=== PATIENT | male | born 1955 | race Caucasian/White ===

== ENCOUNTER 2016-09-27 12:10 | Emergency (ER) | payer BC ==
[2016-09-27 12:18] VITALS: BP 130/82
[2016-09-27] MEDS ORDERED: Sodium Chloride 0.9% 1,000 ML IV ONE (12:25)
--- NOTE | 2016-09-27 12:25 | EDM.PDOC ---
ED HPI RENAL/ - General Chief Complaint: Genitourinary Problem Stated Complaint: ? KIDNEY STONE Time Seen by Provider: 09/27/16 12:20 Source of Information: Reports: Patient History Limitations: Reports: No limitations - History of Present Illness INITIAL COMMENTS - FREE TEXT/NARRATIVE: Pete Fernandez is a 61 year old male with a medical history of diabetes and CAD presenting to the ED with right flank pain. The pain started this morning about an hour ago. The pain is severe and sharp and located in the right flank wrapping to the front of the abdomen towards the groin. He had a kidney stone in the past and reports it was "all acid." This feels the same way. He denies urinary difficulties including dysuria, hematuria, or frequency/urgency. He is from [place] and is in [employer]. Recent medical history includes a CT scan done in [place] on September 25 for follow-up on "infected hemorrhoids." He had an area in or around the rectum drained by his family doctor and is taking antibiotics for that now. He can't remember the antibiotics he is on. - Related Data Allergies/ADRs: Allergies Allergy/AdvReac Type Severity Reaction Status Date / Time No Known Allergies Allergy Verified 09/27/16 12:20 Home Meds: Home Meds Aspirin [Ecotrin] 1 tab PO DAILY 09/27/16 [History] Ergocalciferol (Vitamin D2) [Vitamin D] 1 tab PO DAILY 09/27/16 [History] Nitroglycerin [Nitrostat] 1 tab PO ASDIRECTED PRN 09/27/16 [History] Amery-3/DHA/Epa/Fish Oil [Fish Oil 1,000 mg Softgel] 2 cap PO DAILY 09/27/16 [ History] Omeprazole 1 tab PO DAILY 09/27/16 [History] Potassium Citrate [Potassium Citrate ER] 2 tab PO DAILY 09/27/16 [History] Quinapril [Accupril] 1 tab PO DAILY 09/27/16 [History] Rosuvastatin Calcium [Crestor] 20 mg PO DAILY 09/27/16 [History] metFORMIN [Glucophage XR] 1 tab PO DAILY 09/27/16 [History] Past Medical History Cardiovascular History: Reports: CAD, PR Endocrine/Metabolic History: Reports: Diabetes, type II Social & Family History - Tobacco Use Tobacco Use Within Last Twelve Months: Snuff/Dip (chews) - Alcohol Use Alcohol Use History: No - Recreational Drug Use Recreational Drug Use: No ED ROS GENERAL - Review of Systems Review Of Systems: ROS reveals no pertinent complaints other than HPI. Constitutional: Reports: no symptoms. Denies: fever, chills HEENT: Reports: No symptoms Respiratory: Denies: Shortness of Breath, Pleuritic Chest Pain, Cough Cardiovascular: Denies: Chest pain, Dyspnea on exertion, Lightheadedness Endocrine: Reports: no symptoms GI/Abdominal: Reports: Abdominal pain, Nausea. Denies: Bloody stool, Constipation, Diarrhea, Vomiting : Reports: flank pain. Denies: dysuria, frequency, hematuria, urgency, urinary retention Musculoskeletal: Reports: no symptoms Skin: Reports: no symptoms Neurological: Reports: No Symptoms Hematologic/Lymphatic: Reports: no symptoms Immunologic: Reports: no symptoms ED EXAM, RENAL/ - Physical Exam Exam: See Below Exam Limited By: No limitations General Appearance: alert, WD/WN, moderate distress (patient is sweating and moving around in pain) Eye Exam: bilateral eye: PERRL Ears: normal external exam, normal canal Nose: normal inspection Throat/Mouth: Normal inspection, Normal lips, Normal teeth, Normal oropharynx Head: atraumatic, normocephalic Neck: normal inspection, non-tender, full range of motion Respiratory/Chest: no respiratory distress, lungs clear, normal breath sounds, no accessory muscle use, chest non-tender Cardiovascular: regular rate, rhythm, no edema GI/Abdominal: normal bowel sounds, soft, other (tender in the right side of abdomen) Back Exam: CVA tenderness (R). No: CVA tenderness (L), paraspinal tenderness Extremities: normal inspection, normal range of motion Neurological: alert, oriented, CN II-XII intact Psychiatric: normal affect Skin Exam: Warm, Dry, No rash Lymphatic: no adenopathy Course - Vital Signs Last Recorded V/S: Last Vital Signs Temp 96.8 F 09/27/16 12:17 Pulse 60 09/27/16 12:17 Resp 24 H 09/27/16 12:17 BP 130/82 09/27/16 12:17 Pulse Ox 100 09/27/16 12:17 - Orders/Labs/Meds Orders: Active Orders 24 hr Category Date Time Status Morphine Med 09/27/16 15:03 Once 2 mg IVPUSH ONETIME ONE Tamsulosin [Flomax] Med 09/27/16 15:03 Once 0.4 mg PO ONETIME ONE Labs: Laboratory Tests 09/27/16 09/27/16 Range/Units 12:24 13:05 Sodium 138 (135-145) mmol/L Potassium 4.6 (3.6-5.0) mmol/L Chloride 109 (101-111) mmol/L Carbon Dioxide 24.0 (21.0-31.0) mmol/L Anion Gap 9.6 BUN 19 H (7-18) mg/dL Creatinine 1.3 (0.6-1.3) mg/dL Est Cr Clr Drug Dosing 58.92 mL/min Estimated GFR (MDRD) 56 Glucose 181 H (74-105) mg/dL Calcium 8.9 (8.4-10.2) mg/dl Urine Color Yellow (YELLOW) Urine Appearance Cloudy (CLEAR) Urine pH 5.0 (5.0-9.0) Ur Specific [place] 1.020 (1.005-1.030) Urine Protein Trace H (NEGATIVE) Urine Glucose (UA) 500 H (NEGATIVE) Urine Ketones Trace H (NEGATIVE) Urine Occult Blood Large H (NEGATIVE) Urine Nitrite Negative (NEGATIVE) Urine Bilirubin Negative (NEGATIVE) Urine Urobilinogen 0.2 (0.2-1.0) mg/dL Ur Leukocyte Esterase Negative (NEGATIVE) Urine RBC >100 H /HPF Urine WBC 0-5 (0-5/HPF) /HPF Ur Epithelial Cells Few /HPF Urine Bacteria Moderate H (0-FEW/HPF) /HPF Meds: Medications Discontinued Medications Generic Name Dose Route Start Last Admin Trade Name Arsenq PRN Reason Stop Dose Admin Sodium Chloride 1,000 mls @ 999 mls/hr 09/27/16 12:25 09/27/16 12:40 Normal Saline IV 09/27/16 13:25 999 mls/hr .BOLUS ONE Administration Ketorolac Tromethamine 30 mg 09/27/16 12:27 09/27/16 12:40 Toradol IVPUSH 09/27/16 12:28 30 mg ONETIME ONE Administration Morphine Sulfate 4 mg 09/27/16 12:26 09/27/16 12:40 Morphine IVPUSH 09/27/16 12:27 4 mg ONETIME ONE Administration - Re-Assessments/Exams Free Text/Narrative Re-Assessment/Exam: IV access established; patient given a 1 liter fluid bolus, 30 mg toradol, and 4 mg morphine IV. After pain improved he was taken to x-ray. UA collected. 09/27/16 12:42 Free Text/Narrative Re-Assessment/Exam: KUB did not show a stone so the patient was sent for a non-contrast CT of the abdomen/pelvis which revealed a 3 mm kidney stone at the right UVJ. He was given a dose of flomax and 2 mg of morphine IV after the CT. His is coming to pick him up so he will not be driving. 09/27/16 15:04 Departure - Departure Time of Disposition: 15:08 Disposition: Home, Self-Care 01 Clinical Impression: Ureterolithiasis Instructions: Kidney Stones, [id number] Referrals: PCP,Not In Area [Primary Care Provider] - Forms: ED Department Discharge Additional Instructions: Push fluids to help with passage of the kidney stone. [place] and indomethacin can be used for pain. Please do not drive or operate heavy machinery while under the influence of opioid medication ([place]). Please strain your urine to collect the stone for analysis. Follow-up with your primary care doctor when able. - Problem List Review Problem List Initiated/Reviewed/Updated: Yes - My Orders Last 24 Hours: My Active Orders 09/27/16 15:03 Morphine 2 mg IVPUSH ONETIME ONE Tamsulosin [Flomax] 0.4 mg PO ONETIME ONE - Assessment/Plan Last 24 Hours: My Active Orders 09/27/16 15:03 Morphine 2 mg IVPUSH ONETIME ONE Tamsulosin [Flomax] 0.4 mg PO ONETIME ONE Assessment:: Right ureterolithasis; 3 mm Plan: Patient with a 3 mm kidney stone near the right UVJ. This was not seen on plain film making uric acid stones seem likely. This stone has a high probability of passing on it's own. I would recommend flomax, increased hydration, norco, and indomethacin for facilitation of stone passage and pain control. He will be sent home with a kit to strain the urine for repeat stone analysis by his PCP in [place] so additional measures can be taken to prevent recurrence. Questions were answered and he was discharged to home in stable and improved condition.
[2016-09-27] MEDS ORDERED: Morphine 4 MG/ML Syringe IVPUSH ONE (12:26)
[2016-09-27] MEDS ORDERED: Ketorolac 30 MG/ML SDV IVPUSH ONE (12:27)
--- NOTE | 2016-09-27 13:06 | CR ---
Clinical history: 61-year-old male right flank pain. Interpretation: Multilevel disc disease and chronic hypertrophic arthritic changes lower dorsal spin e. Flat plate abdomen confirms asymmetric reactive arthritic sclerosis right hip and ipsilateral SI mary nt. No sign of pathologic calcifications abdominal soft tissue mass lesion, mechanical bowel obstruction or gross free intraperitoneal air. Lung bases clear. Normal cardiac silhouette No foreign bodies. CONCLUSION: Multilevel disc disease and arthritis spine/right hip No sign of urolithiasis. Nonspecific bowel pattern.
--- NOTE | 2016-09-27 14:34 | CT ---
Clinical history: 61-year-old hypertensive, diabetic male with history of "kidney stones" presents n ow with right flank pain. TECHNIQUE: Volume acquisition of data emergency unenhanced CT scan of the abdomen and pelvis (kidney s/ureters/bladder) obtained with the patient lying supine on the Siemens multi slice CT scanner [place], [place]. All data archived in the PACS system for storage, refor matting and study. Interpretation: Abnormal. 1. *Tiny 3 mm diameter distal right ureterolith with subtle asymmetric signs of proximal ureterectas is and pyelocaliectasis on the right. (Some pyelosinus backflow around the contour of the kidney). U rinary bladder unremarkable. Inguinal hernia on the right without incarcerated bowel. 2. Multiple ti ny punctate radiodensities identified in the calyces both kidneys (right > left). 3. Normal caliber mildly ectatic aortoiliac vessels (tiny punctate calcifications at the bifurcation ). No sign of abdominal aortic aneurysm or dissection. 4. Inhomogeneously dense mildly enlarged prostate gland with several punctate calcifications. 5. A few scattered sigmoid diverticula without associated signs of inflammation. 6. Tiny retrocecal appendix normal. No sign of mechanical bowel obstruction, inflammatory "dirty" pe ritoneal fat, ascites or free intraperitoneal air. 7. Gallbladder, unenhanced liver, stomach, spleen, pancreas and adrenal glands unremarkable. CONCLUSION: Partially obstructing distal right ureterolith (see above). Unenhanced emergency CT scan abdomen and pelvis otherwise unremarkable.
[2016-09-27] MEDS ORDERED: Tamsulosin 0.4 MG Cap.ER PO ONE (15:03)
[2016-09-27] MEDS ORDERED: Morphine 2 MG/ML Syringe IVPUSH ONE (15:03)
== END 2016-09-27 15:18 | disposition home or self-care (01) ==
LOC: DL.ED 12:10
DX: N20.2 Calculus of kidney with calculus of ureter (principal); I25.10 Atherosclerotic heart disease of native coronary artery without angina pectoris; I25.2 Old myocardial infarction; E11.9 Type 2 diabetes mellitus without complications; Z79.82 Long term (current) use of aspirin; Z79.899 Other long term (current) drug therapy; Z79.84 Long term (current) use of oral hypoglycemic drugs
CPT/HCPCS: 36415; 74000; 74176; 80048; 81001; 96361; 96374; 96375; 99284; A9270; J1885; J2270; J7030